=== PATIENT | male | born 1965 | race African-American/Black ===

== ENCOUNTER 2021-01-13 12:45 | Inpatient (IN) | payer OTHER ==
[~2021-01-13] VITALS: Ht 182.9 cm; Wt 74.0 kg
[2021-01-13 13:45] LABS: HEMOGLOBIN 18.5 gm/dl (14.0-17.5); RED BLOOD COUNT 5.78 M/UL (4.20-5.50); WHITE BLOOD COUNT 6.1 K/UL (4.5-11.0)
[2021-01-13 14:02] LABS: BUN/CREATININE RATIO 28 (0-10)
[2021-01-14 03:53] LABS: WHITE BLOOD COUNT 4.7 K/UL (4.5-11.0)
[2021-01-14 03:54] LABS: HEMOGLOBIN 16.4 gm/dl (14.0-17.5); RED BLOOD COUNT 5.09 M/UL (4.20-5.50)
[2021-01-14 04:09] LABS: BUN/CREATININE RATIO 23 (0-10)
[2021-01-15 14:02] LABS: BUN/CREATININE RATIO 8 (0-10)
[2021-01-17 13:05] LABS: RED BLOOD COUNT 4.21 M/UL (4.20-5.50); WHITE BLOOD COUNT 7.1 K/UL (4.5-11.0)
[2021-01-17 13:07] LABS: HEMOGLOBIN 13.5 gm/dl (14.0-17.5)
[2021-01-17 13:29] LABS: BUN/CREATININE RATIO 7 (0-10)
[2021-01-18] MEDS ORDERED: IBUPROFEN800 MG PO (14:02)
== END 2021-01-18 15:55 | disposition home or self-care (01) | DRG 350 ==
LOC: ER1 12:45 → M/S 18:17 → CDU 18:17 → M/S 01-14 21:23
PROVIDERS: Physician Assistant; ADMIT Surgery
PROC: 3E0333Z Introduction of Anti-inflammatory into Peripheral Vein, Percutaneous Approach (ICD-10-PCS; 2021-01-14)
PROC: 8E0ZXY6 Isolation (ICD-10-PCS; 2021-01-14)
PROC: 0YQ54ZZ Repair Right Inguinal Region, Percutaneous Endoscopic Approach (ICD-10-PCS; principal; 2021-01-16 07:30)
DX: K40.31 Unilateral inguinal hernia, with obstruction, without gangrene, recurrent (principal); U07.1 COVID-19; E87.1 Hypo-osmolality and hyponatremia; F17.210 Nicotine dependence, cigarettes, uncomplicated; Z96.641 Presence of right artificial hip joint; J44.9 Chronic obstructive pulmonary disease, unspecified; K59.00 Constipation, unspecified
CPT/HCPCS: 36415; 71045; 74018; 80048; 80053; 81001; 82150; 83690; 85007; 85025; 85027; 93005; 94640; 94664; 94760; 96374; 99285; C1781; J0690; J1100; J2001; J2250; J2270; J2405; J2704; J2710; J3010; J7042; J7120; Q9967; U0002